=== PATIENT | female | born 1965 | race Caucasian/White ===

== ENCOUNTER → 2016-09-27 | Outpatient (CLI) | payer OTHER ==
[2016-10-04 00:32] LABS: BRUCELLA AB IGG 0.26; BRUCELLA AB IGM 0.22; R. TYPHI IgG AB Not Detected (Not Detected); R. TYPHI IgM AB Not Detected (Not Detected); RMSF IgM AB Not Detected (Not Detected)
== END | disposition home or self-care (01) ==
LOC: C.LAB1850 15:47
PROVIDERS: ATTEND Internal Medicine Infectious Disease
DX: M35.9 Systemic involvement of connective tissue, unspecified (principal)

== ENCOUNTER → 2016-10-28 | Outpatient (CLI) | payer OTHER ==
[2016-11-04 11:23] LABS: ALBUMIN 4.2 G/DL (3.8-4.8); ANTI-CENTROMERE AB <1.0 NEG AI (<1.0 NEG); ANTI-SS-A <1.0 NEG AI (<1.0 NEG); ANTI-SS-B <1.0 NEG AI (<1.0 NEG); DNA ds CRITHIDIA NEGATIVE (NEGATIVE); GAMMA GLOBULIN 1.2 G/DL (0.8-1.7); MICROSOMAL AB <1 IU/ML (<9); Sm Antibody <1.0 NEG AI (<1.0 NEG); TOTAL PROTEIN 7.1 G/DL (6.2-8.3)
== END | disposition home or self-care (01) ==
LOC: C.LAB1850 09:17
PROVIDERS: ATTEND Internal Medicine Rheumatology
DX: M35.9 Systemic involvement of connective tissue, unspecified (principal); R70.0 Elevated erythrocyte sedimentation rate; I73.00 Raynaud's syndrome without gangrene; M79.7 Fibromyalgia; M35.3 Polymyalgia rheumatica

== ENCOUNTER → 2017-06-09 | Outpatient (CLI) | payer OTHER ==
[2017-06-09 12:12] LABS: BASO % 0.1 %; BASO ABS # 0.02 K/uL (0-0.2); COMPLETE YES; EOS % 0.1 %; HEMATOCRIT 39.8 % (37-47); LYMPH % 14.2 %; LYMPH ABS # 1.94 K/uL (1.2-3.4); MEAN CELL VOLUME 92.6 fL (80-100); MEAN CORPUSCULAR HEMOGLOBIN 27.9 pg (25-34); MEAN CORPUSCULAR HGB CONC 30.2 g/dl (32-36); MONO % 3.2 %; NEUT % 81.4 %; PLATELET COUNT 376 K/uL (130-400); WHITE BLOOD COUNT 13.68 K/uL (4.8-10.8)
[2017-06-09 12:44] LABS: CREATININE 0.98 mg/dl (0.60-1.20)
== END | disposition home or self-care (01) ==
LOC: C.LAB1850 11:28
PROVIDERS: ATTEND Internal Medicine Rheumatology
DX: M35.3 Polymyalgia rheumatica (principal); Z79.52 Long term (current) use of systemic steroids; Z79.899 Other long term (current) drug therapy

== ENCOUNTER → 2017-10-10 | Outpatient (CLI) | payer OTHER ==
[2017-10-10 15:34] LABS: BASO % 0.1 %; BASO ABS # 0.01 K/uL (0-0.2); HEMATOCRIT 38.2 % (37-47); HEMOGLOBIN 11.7 g/dL (12.0-16.0); IG# 0.15 K/uL (0.00-0.02); LYMPH % 11.5 %; LYMPH ABS # 1.61 K/uL (1.2-3.4); MEAN CELL VOLUME 91.4 fL (80-100); MEAN CORPUSCULAR HGB CONC 30.6 g/dl (32-36); MONO % 4.2 %; MONO ABS # 0.59 K/uL (0.11-0.59); NEUT % 83.1 %; PLATELET COUNT 400 K/uL (130-400); RED CELL DISTRIBUTION WIDTH CV 14.4 % (11.5-14.5); RED CELL DISTRIBUTION WIDTH SD 47.5 fL (36.4-46.3); WHITE BLOOD COUNT 13.96 K/uL (4.8-10.8)
[2017-10-10 15:53] LABS: ALBUMIN 3.5 gm/dl (3.4-5.0); ALT/SGPT 29 U/L (12-78); AST/SGOT 12 U/L (15-37); CREATININE 0.99 mg/dl (0.60-1.20)
[2017-10-10 15:56] LABS: ALKALINE PHOSPHATASE 77 U/L (45-117); TOTAL PROTEIN 7.5 gm/dl (6.4-8.2)
== END | disposition home or self-care (01) ==
LOC: C.LAB1850 14:09
PROVIDERS: ATTEND Internal Medicine Rheumatology
DX: M35.3 Polymyalgia rheumatica (principal)

== ENCOUNTER → 2017-11-22 | Outpatient (CLI) | payer OTHER ==
--- NOTE | 2017-11-22 14:40 | DIAGNOSTIC IMAGING REPORT ---
BONE SCAN WHOLE BODY HISTORY: Pain R70.0, M54.16, Z79.52 RADIOTRACER: 26.1 mCi Tc-99m MDP STUDY/IMAGES: Planar anterior and posterior whole body imaging was performed 3 hours following the intravenous administration of radiotracer. COMPARISON: None. FINDINGS: Bilateral renal activity is present. There is a focus of increased activity involving the right humeral neck. Also a focus of increased activity of the left lateral aspect mid cervical spine. All remaining components of the scanner unremarkable. All additional components of the axial and appendicular skeleton show unremarkable activity characteristics. Bilateral renal activity is again noted. There is no abnormal soft tissue activity. IMPRESSION: 1. No evidence for abnormal activity within the thoracic or lumbar spine. 2. Small focus of intense activity overlying the right humeral neck. Specific images of the right shoulder are suggested as follow-up. 3. Small focus of increased activity mid aspect left lateral mid cervical spine. Specific views of the cervical spine is suggested as follow-up. The above report was generated using voice recognition software. It may contain grammatical, syntax or spelling errors. Electronically signed by: Raymon Rubio M.D. 11/22/2017 2:38 PM Dictated Date/Time: 11/22/2017 2:35 PM
== END | disposition home or self-care (01) ==
LOC: C.NUCL 11:04
PROVIDERS: ATTEND Internal Medicine Rheumatology
DX: M54.16 Radiculopathy, lumbar region (principal); R70.0 Elevated erythrocyte sedimentation rate; Z79.52 Long term (current) use of systemic steroids

== ENCOUNTER → 2017-12-19 | Outpatient (CLI) | payer OTHER | END | disposition home or self-care (01) | LOC: C.LAB1850 13:59 | DX: M35.9 Systemic involvement of connective tissue, unspecified (principal); M35.3 Polymyalgia rheumatica; Z79.52 Long term (current) use of systemic steroids; I73.00 Raynaud's syndrome without gangrene; M47.22 Other spondylosis with radiculopathy, cervical region ==

== ENCOUNTER → 2018-05-01 | Outpatient (CLI) | payer OTHER ==
--- NOTE | 2018-05-01 15:03 | DIAGNOSTIC IMAGING REPORT ---
R SHOULDER MIN 2 VIEWS ROUTINE CLINICAL HISTORY: Right shoulder pain. COMPARISON: Whole body bone scan November 14, 2017. FINDINGS: No acute fracture is evident. There is evidence for a suspected distal right clavicular resection. Glenohumeral joint space is preserved. Note is made of a 3 cm chondroid lesion within the proximal right humerus, involving the metaphysis, which corresponds to the focus of marked uptake on bone scan of November 22, 2017. Adjacent lucency is noted. No pathologic fracture or definite cortical destruction is noted. A few tiny calcific densities are noted along the lateral aspect of the right humeral head. 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 Possible associated lytic component. Statistically, this reflects an enchondroma however a chondrosarcoma is within the differential given right shoulder pain and abnormal bone scan. MRI of the right shoulder may be of benefit in further evaluation. Electronically signed by: Martin Anne M.D. 05/01/2018 3:02 PM Dictated Date/Time: 05/01/2018 2:50 PM
[2018-05-01 16:35] LABS: MEAN CORPUSCULAR HGB CONC 30.5 g/dl (32-36)
[2018-05-01 16:37] LABS: ALBUMIN 3.7 gm/dl (3.4-5.0); ALKALINE PHOSPHATASE 88 U/L (45-117); ALT/SGPT 25 U/L (12-78); AST/SGOT 18 U/L (15-37); CREATININE 0.98 mg/dl (0.60-1.20); TOTAL PROTEIN 7.7 gm/dl (6.4-8.2)
[2018-05-01 16:59] LABS: HEMATOCRIT 37.1 % (37-47); HEMOGLOBIN 11.3 g/dL (12.0-16.0); MEAN CELL VOLUME 87.1 fL (80-100); MEAN CORPUSCULAR HEMOGLOBIN 26.5 pg (25-34); MEAN PLATELET VOLUME 10.7 fL (7.4-10.4); PLATELET COUNT 357 K/uL (130-400); RED CELL DISTRIBUTION WIDTH CV 14.5 % (11.5-14.5); RED CELL DISTRIBUTION WIDTH SD 46.3 fL (36.4-46.3); WHITE BLOOD COUNT 8.21 K/uL (4.8-10.8)
[2018-05-01 17:03] LABS: BASO % 0.4 %; BASO ABS # 0.03 K/uL (0-0.2); EOS % 0.1 %; EOS ABS # 0.01 K/uL (0-0.5); IG# 0.04 K/uL (0.00-0.02); LYMPH % 25.5 %; LYMPH ABS # 2.09 K/uL (1.2-3.4); MONO % 8.5 %; NEUT ABS # 5.34 K/uL (1.4-6.5)
== END | disposition home or self-care (01) ==
LOC: C.RAD1850 14:16
PROVIDERS: ATTEND Internal Medicine Rheumatology
DX: M35.9 Systemic involvement of connective tissue, unspecified (principal); M35.3 Polymyalgia rheumatica; R93.7 Abnormal findings on diagnostic imaging of other parts of musculoskeletal system; Z79.52 Long term (current) use of systemic steroids; Z79.899 Other long term (current) drug therapy; M75.91 Shoulder lesion, unspecified, right shoulder